=== PATIENT | male | born 2000 | race Hispanic/Latino ===

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

== ENCOUNTER 2025-04-17 15:32 | Emergency (ER) | payer OTHER, SELFPAY ==
--- NOTE | 2025-04-17 15:32 | ED_ITS ---
HPI - Abdominal Pain General Chief Complaint: Abdominal Pain Stated Complaint: sharp pain in abdomen/fever Source: patient, RN notes reviewed and old records reviewed Mode of arrival: ambulatory Limitations: no limitations History of Present Illness HPI narrative: 24-year-old male presents to the [facility] with complaints of generalized abdominal pain since this morning. Reports fever. Pain worse right lower quadrant. Reports nausea. Has taken Pepto-Bismol with no relief Treatments prior to arrival: antacids Related Data Allergies Allergy/AdvReac Type Severity Reaction Status Date / Time No Known Allergies Allergy Verified 04/17/25 15:33 Review of Systems Review of Systems: All systems reviewed & are unremarkable except as noted in HPI and below Constitutional: Constitutional: Reports as per HPI and Reports fever(s) ENT: Reports system reviewed and no additional complaints, except as documented Cardiovascular: Cardiovascular: Reports no additional cardiovascular complaints, Denies chest pain and Denies dyspnea Respiratory: Respiratory: Reports no additional respiratory complaints, Denies chest congestion, Denies cough and Denies dyspnea Gastrointestinal: Gastrointestinal: Reports as per HPI, Reports abdominal pain and Reports nausea Genitourinary: Genitourinary: Reports no additional male genitourinary complaints Musculoskeletal: Musculoskeletal: Reports no additional musculoskeletal complaints Integumentary/Breasts: Skin/Breast: Reports system reviewed and no additional complaints, except as docu PMFSH Social History Social History Gender identity (if verbalized by the patient): Male Comments At the time of my signature, I reviewed and agree with the nursing past medical, surgical, social, and family history. There is no relevant family history pertinent to the patient complaint. Exam Const: General: cooperative, no acute distress, well developed, alert, ill appearing, tired appearing, uncomfortable and well nourished Nutritional Appearance: well nourished Orientation/consciousness: patient oriented x3 Limitations: no limitations HENMT: Head: normal to inspection Eyes: General: appearance normal, both eyes and all related structures Alignment and Position: alignment normal Neck: Neck: normal visual inspection, full ROM, no lymphadenopathy and no meningeal signs Chest: Chest palpation & inspection: normal inspection of the chest Resp: Effort & Inspection: normal respiratory effort and able to speak in complete sentences Auscultation: clear to auscultation bilaterally, no crackles, no rales, no rhonchi and no wheezes Cardio: Rate: tachycardic GI: GI Palp: Yes abdominal tenderness, Yes Tenderness to palpation present (GI) and Yes Guarding due to palpation present (GI) Auscultation: Hypoactive bowel sounds present Skin: General skin exam: normal color and no rashes or lesions noted Neuro: General: patient oriented x3, gait normal, moves all extremities and no meningeal signs Cognition (Neuro): normal cognition Speech: normal speech Gait exam (Neuro): Normal gait present Extrem: General: normal to inspection, full ROM, capillary refill normal and normal gait Psych: Appearance: grossly normal and well kempt Mental Status: mental status grossly normal Speech and movement: Normal speech and movement present and Clear speech present Affect: normal affect Attitude: cooperative Course Course Level of Care: Express Care Visit Vital Signs Vital signs: Vital Signs Temperature 99.8 F H 04/17/25 15:38 Pulse Rate 118 H 04/17/25 15:38 Respiratory Rate 20 04/17/25 15:38 Blood Pressure 128/90 04/17/25 15:38 Pulse Oximetry 100 04/17/25 15:38 Temperature 99.8 F H 04/17/25 15:38 Pulse Rate 118 H 04/17/25 15:38 Respiratory Rate 20 04/17/25 15:38 Blood Pressure 128/90 04/17/25 15:38 Pulse Oximetry 100 04/17/25 15:38 Reviewed Transfer Transfered to: Health system Transportation: Other (pov per mom request, declined EMS) Transfer rationale: Patient with abdominal pain, worse right lower quadrant sending for higher level of care Accepting physician: Bryan Bennett MDM - Abdominal Pain [facility] Narrative Medical decision making narrative: Patient sitting in exam room. Abdominal discomfort worse right lower quadrant Patient ill in appearance, tachycardic, low-grade fever Sending for higher level of care Transfer instructions reviewed with patient and mom to go directly to the ER. Do not eat or drink until cleared by ER provider. EMS offered, family declined All questions have been answered, and the patient deny any further questions. Some parts of this dictation were generated by voice recognition software and may contain typographical and/or grammatical inaccuracies. Differential Diagnosis Differential diagnosis: Likely abdominal pain, acute appendicitis, calculus of kidney, constipation, diverticulitis, gastroenteritis, pancreatitis and small bowel obstruction Critical Care Time Critical Care Time Critical Care Time: No Discharge Plan Discharge Clinical Impression: Abdominal pain Patient Disposition: Acute Care Hospital Condition: Stable Patient Language: Marshallese Follow-up/Referrals: UNKNOWN,DOCTOR [Non-Staff] -
[2025-04-17 15:38] VITALS: BP 128/90; PULSE 118; RESP 20; TEMP 37.7; O2SAT 100
== END 2025-04-17 15:45 | disposition short-term general hospital (02) ==
LOC: EXPCOLL 15:38
PROVIDERS: Emergency Provider Nurse Practitioner
DX: R10.31 Right lower quadrant pain (principal)
CPT/HCPCS: 99212; G0463